=== PATIENT | male | born 1945 | race Caucasian/White ===

== ENCOUNTER 2016-06-29 13:46 | Inpatient (IN) | payer MEDICARE ==
[~2016-06-29] VITALS: Ht 175.3 cm; Wt 69.4 kg
[2016-06-29 15:27] LABS: BASOPHILS % (AUTO) 0 % (0-2); EOSINOPHILS % (AUTO) 0 % (0-4); LYMPHOCYTES # (AUTO) 1.7 X10^3; MEAN CORPUSCULAR HEMOGLOBIN 27.8 PG (26.0-34.0); MEAN CORPUSCULAR HGB CONC 32.6 g/dL (31.0-37.0); MEAN CORPUSCULAR VOLUME 86 FL (80-100); MEAN PLATELET VOLUME 10.5 FL (6.0-9.5); MONOCYTES # (AUTO) 1.4 X10^3; MONOCYTES % (AUTO) 8 % (3-11); NEUTROPHILS # (AUTO) 14.2 X10^3; NEUTROPHILS % (AUTO) 82 % (51-67); PLATELET COUNT 154 10^3uL (150-450); WHITE BLOOD COUNT 17.35 10^3uL (4.0-11.0)
[2016-06-29] MEDS ORDERED: ALBUTEROL/IPRATROPIUM 3MG-0.5MG/3ML (DUONEB) NEB VIAL INH ONE (15:40)
[2016-06-29] MEDS ORDERED: methylPREDNISolone 125 MG (Solu-MEDROL) VIAL IV ONE (15:40)
[2016-06-29 16:05] LABS: ALBUMIN 3.6 g/dL (3.4-5.0); ALKALINE PHOSPHATASE 627 U/L (38-126); BUN/CREATININE RATIO 23 (10-20); CALCULATED IONIZED CALCIUM 4.1 mg/dL (3.8-4.6); TOTAL PROTEIN 7.1 g/dL (6.4-8.5)
[2016-06-29 18:16] LABS: CLARITY,URINE Clear; COLOR,URINE Amber; GLUCOSE, URINE (UA) Negative (Negative); LEUKOCYTE ESTERASE, URINE Negative (Negative)
[2016-06-29 18:19] LABS: BILIRUBIN,URINE 1+ (Negative)
[2016-06-29] MEDS ORDERED: cefTRIAXone SODIUM 1,000 MG in SODIUM CHLORIDE 50 ML IV ONE (18:25)
[2016-06-29] MEDS ORDERED: ONDANSETRON 2 MG/ML (Z0FRAN) 2 ML VIAL IV PRN (18:35)
[2016-06-29] MEDS ORDERED: ACETAMINOPHEN 325 MG TAB (TYLENOL) PO PRN (18:35)
--- NOTE | 2016-06-29 18:46 | NUR ---
Pt. arrives to 310 from ED via cart accomapnied by MANAGER FINE [employer] and family. Pt. ambulates to weigh chair with assist. See admission assessment.
[2016-06-29 18:56] LABS: URINE CENTRIFUGED VOLUME 12 mL
[2016-06-29 18:58] LABS: RBC,URINE 0-2 /HPF
[2016-06-29] MEDS ORDERED: SODIUM CHLORIDE 250 ML ONE (19:06)
[2016-06-29] MEDS ORDERED: AZITHROMYCIN 500 MG (ZITHROMAX) VIAL IV ONE (19:06)
[2016-06-29 19:08] VITALS: BP 115/65
[2016-06-29] MEDS: AZITHROMYCIN VIAL 500 MG in SODIUM CHLORIDE 250 ML IV SCH (19:11)
[2016-06-29] MEDS ORDERED: morphine INJ 2 MG/ML 1 ML SYRINGE IV PRN (19:15)
[2016-06-29 19:37] LABS: AMYLASE* 46 U/L (25-115); LIPASE* 45 U/L (23-300)
[2016-06-29] MEDS: ALBUTEROL/IPRATROPIUM 3MG-0.5MG/3ML (DUONEB) NEB VIAL INH PRN (20:14)
[2016-06-29 20:37] VITALS: BP 115/65
--- NOTE | 2016-06-29 21:00 | NUR ---
Food brought up (cake, yogurt, pudding, jello) and patient eats all without difficulties. No needs at this time.
[2016-06-30] VITALS (8 sets, daily range): BP systolic 84–116; BP diastolic 40–63
[2016-06-30 06:05] LABS: MEAN CORPUSCULAR HEMOGLOBIN 27.6 PG (26.0-34.0); MEAN CORPUSCULAR HGB CONC 32.1 g/dL (31.0-37.0); MEAN CORPUSCULAR VOLUME 86 FL (80-100); PLATELET COUNT 131 10^3uL (150-450); WHITE BLOOD COUNT 12.34 10^3uL (4.0-11.0)
[2016-06-30 06:10] LABS: BAND NEUTROPHILS % 1 % (0-6); SEGMENTED NEUTROPHILS % 92 % (51-67)
[2016-06-30 06:11] LABS: EOSINOPHILS % 0 % (0-4); LYMPHOCYTES # 0.6 #; MONOCYTES # 0.2 #; MONOCYTES % 2 % (3-11); RBC MORPH NORMAL (NORMAL); TOTAL CELLS COUNTED 100
--- NOTE | 2016-06-30 06:24 | NUR ---
Patient's telemetry shows elevated T wave and couplets. Dr. Lazo notified, EKG to be done. Will continue to monitor.
--- NOTE | 2016-06-30 06:27 | NUR ---
Patient rests in bed throughout night without needs. Reports pain better after administration of morphine. IV running without difficulties. No needs at this time.
[2016-06-30 06:57] LABS: ALBUMIN 3.2 g/dL (3.4-5.0); TOTAL PROTEIN 6.4 g/dL (6.4-8.5)
[2016-06-30] MEDS ORDERED: NS FLUSH 3 ML PRN IV (08:25)
[2016-06-30] MEDS ORDERED: NS FLUSH 10 ML PRN IV (08:25)
--- NOTE | 2016-06-30 08:30 | NUR ---
Pt sitting up in chair eating breakfast. at bedside. States he feels better than when he came in, but not great. Unable to pinpoint what is wrong. States "every time I take a bite of anything, it's like I get the hiccups!". Skin warm, dry, intact. Resprs nonlabored, even on RA. Denies needs.
[2016-06-30] MEDS: NS FLUSH 3 ML DAILY IV SCH (08:43)
--- NOTE | 2016-06-30 12:20 | NUR ---
MED REC COMPLETED-current med list obtained from [facility] application, retail pharmacy, and patient/spouse interview.
[2016-06-30] MEDS: ASPIRIN 325 MG TAB PO SCH (12:38)
[2016-06-30] MEDS: HYDROcodone/APAP 7.5 MG/325 MG (NORCO) TABLET PO PRN ×3 (12:40→18:42)
--- NOTE | 2016-06-30 15:26 | NUR ---
Resting with eyes closed. Resp regular. Spouse at bedside.
--- NOTE | 2016-06-30 16:21 | NUR ---
Amb around to nurses station with 1 assist. Gait steady. griffin sullivan.
[2016-06-30] MEDS ORDERED: cefTRIAXone SODIUM 1,000 MG in SODIUM CHLORIDE 50 ML IV SCH (17:00)
[2016-06-30] MEDS: AZITHROMYCIN VIAL 500 MG in SODIUM CHLORIDE 250 ML IV SCH (17:49)
--- NOTE | 2016-06-30 18:36 | NUR ---
States would like a breathing tx. Resp notified.
[2016-06-30] MEDS: ALBUTEROL/IPRATROPIUM 3MG-0.5MG/3ML (DUONEB) NEB VIAL INH PRN (18:45)
--- NOTE | 2016-06-30 19:30 | NUR ---
Pt. resting in bed with yellow gown over street clothes; IV antibiotic infusing without difficulty. Resp are even and unlabored on room air; denies nausea; current pain level at "4". Pt. reports IV site uncomfortable; site inspected and is without heat/redness/edema. Rate adjusted on antibiotic; will continue to monitor. Pt. and in quiet moods R/T: tests/new findings/future plans. Much encouragement and reassurance given to both. Pt. is pleasant and cooperative with care; call light and H2O within reach. Cot/linens in room provided for .
[2016-06-30 20:02] LABS: HEPATITIS A ANTIBODY IGM Negative; HEPATITIS B CORE ABY IGM Negative; HEPATITIS B SURFACE ANTIGEN C Negative
[2016-06-30] MEDS ORDERED: clonazePAM 0.5 MG (KlonoPIN) TAB PO SCH (21:00)
[2016-07-01 00:02] VITALS: BP 99/51
--- NOTE | 2016-07-01 01:10 | NUR ---
Pt. resting quietly with CPAP applied; 2L of O2 bleed-in; IVF infusing at 100 cc/hr; pt. appears to be in no distress. Call light and H2O within reach. at bedside sleeping on cot.
[2016-07-01 04:00] VITALS: BP 101/52
--- NOTE | 2016-07-01 05:30 | NUR ---
Telemetry has reflected sinus rhythm with PAC's and bundle branch block.
--- NOTE | 2016-07-01 06:37 | NUR ---
Pt. rested in long intervals last night; wore CPAP with 2L of O2 bleed-in; called for assist PRN with ambulation. Call light and H2O within reach. Pt. is very pleasant and cooperative. slept at bedside on cot.
[2016-07-01 07:33] VITALS: BP 128/65
[2016-07-01] MEDS: NS FLUSH 3 ML DAILY IV SCH (09:00)
[2016-07-01] MEDS: ASPIRIN 325 MG TAB PO SCH (10:06)
[2016-07-01] MEDS: HYDROcodone/APAP 7.5 MG/325 MG (NORCO) TABLET PO PRN (10:09)
--- NOTE | 2016-07-01 10:10 | NUR ---
[place] 7.5 mg given for c/o back pain - 11/30, abd pain 07/31. Verbalizes understanding of dismissal instructions. Dressed and ready for discharge.
--- NOTE | 2016-07-01 10:35 | NUR ---
Dismissed per w/c to home with . Telemetry and SL d'cd. Alert and oriented. Resp. labored on exertion - unlabored at rest. Skin w/d. Minimal verbal responses - short with care givers at times. Abd distended - active BS, c/o abd pain 07/31, back pain 11/30.
[2016-07-03 10:06] LABS: CMV IGM ANTIBODY Negative (Negative)
== END 2016-07-01 10:35 | disposition home or self-care (01) | DRG 191 ==
LOC: ED 13:48 → MED/SURG 18:03
PROVIDERS: ADMIT Family Medicine; ATTEND Family Medicine
DX: J44.1 Chronic obstructive pulmonary disease with (acute) exacerbation (principal); C78.7 Secondary malignant neoplasm of liver and intrahepatic bile duct; R09.02 Hypoxemia; E78.5 Hyperlipidemia, unspecified; F41.9 Anxiety disorder, unspecified; R10.9 Unspecified abdominal pain; R79.89 Other specified abnormal findings of blood chemistry; I45.10 Unspecified right bundle-branch block; R07.9 Chest pain, unspecified; F17.210 Nicotine dependence, cigarettes, uncomplicated
CPT/HCPCS: 36415; 71010; 71250; 74178; 80053; 80074; 81003; 81015; 82140; 82150; 83605; 83690; 83880; 84132; 84484; 85025; 85610; 86140; 86308; 86645; 87040; 87486; 87581; 87633; 87798; 93005; 93010; 94640; 96361; 96374; 99283; 99284

== ENCOUNTER → 2016-07-04 | Outpatient (REF) | payer MEDICARE ==
[2016-07-04 11:01] LABS: BASOPHILS % (AUTO) 0 % (0-2); EOSINOPHILS % (AUTO) 0 % (0-4); LYMPHOCYTES # (AUTO) 1.3 X10^3; MEAN CORPUSCULAR HEMOGLOBIN 27.2 PG (26.0-34.0); MEAN CORPUSCULAR HGB CONC 31.8 g/dL (31.0-37.0); MEAN CORPUSCULAR VOLUME 85 FL (80-100); MEAN PLATELET VOLUME 10.9 FL (6.0-9.5); MONOCYTES # (AUTO) 1.5 X10^3; MONOCYTES % (AUTO) 9 % (3-11); NEUTROPHILS % (AUTO) 83 % (51-67); PLATELET COUNT 169 10^3uL (150-450); WHITE BLOOD COUNT 16.77 10^3uL (4.0-11.0)
== END ==
LOC: LAB 10:38
PROVIDERS: ATTEND Internal Medicine Hematology & Oncology
DX: K76.89 Other specified diseases of liver (principal)
CPT/HCPCS: 85025

== ENCOUNTER 2016-07-12 06:40 | Day surgery (SDC) | payer MEDICARE ==
[~2016-07-12] VITALS: Ht 175.3 cm; Wt 67.7 kg
[2016-07-12] VITALS (8 sets, daily range): BP systolic 86–145; BP diastolic 54–82
[~2016-07-12 06:40] MED LIST: LACTATED RINGERS 1,000 ML IV SCH; SODIUM CHLORIDE FLUSH 3 ML SYR IV PRN
[2016-07-12] MEDS ORDERED: LIDOCAINE 4% TOPICAL 4.5 ML SYR ONE (07:30)
[2016-07-12] MEDS ORDERED: SIMETHICONE 40 MG/0.6 ML (MYLICON DROPS) ORAL SYRINGE ONE (07:30)
[2016-07-12] MEDS ORDERED: MIDAZOLAM 2 MG/2 ML (VERSED) VIAL ONE (07:39)
[2016-07-12] MEDS ORDERED: PROPOFOL 20 ML IV ONE (07:39)
[2016-07-12] MEDS ORDERED: ALFENTANIL 500 MCG/ML (ALFENTA) 5 ML AMP IV ONE (07:39)
[2016-07-12] MEDS ORDERED: SCOPOLAMINE 1.5 MG (TRANSDERM-SCOP) PATCH TD ONE (07:45)
[2016-07-12] MEDS ORDERED: LIDOCAINE 2% BOLUS 100 MG/5 ML (XYLOCAINE) SYRINGE ONE (08:12)
[2016-07-12] MEDS ORDERED: ONDANSETRON 2 MG/ML (Z0FRAN) 2 ML VIAL ONE (08:18)
== END 2016-07-12 11:35 | disposition home or self-care (01) ==
LOC: ASC 06:40
PROVIDERS: ATTEND Surgery
DX: C78.7 Secondary malignant neoplasm of liver and intrahepatic bile duct (principal); C78.89 Secondary malignant neoplasm of other digestive organs; R53.83 Other fatigue; K29.70 Gastritis, unspecified, without bleeding; R13.19 Other dysphagia; Z01.818 Encounter for other preprocedural examination; R63.4 Abnormal weight loss; Z68.22 Body mass index [BMI] 22.0-22.9, adult; F17.210 Nicotine dependence, cigarettes, uncomplicated; R19.4 Change in bowel habit; J44.9 Chronic obstructive pulmonary disease, unspecified
CPT/HCPCS: 36415; 43239; 85610; 87077; 88305; 88312; 88341; 88342; 88360; A9270; J2250; J2405; J7120

== ENCOUNTER → 2016-07-13 | Outpatient (REF) | payer MEDICARE ==
[2016-07-13 11:58] LABS: MEAN CORPUSCULAR HEMOGLOBIN 26.4 PG (26.0-34.0); MEAN CORPUSCULAR HGB CONC 31.3 g/dL (31.0-37.0); MEAN PLATELET VOLUME 10.7 FL (6.0-9.5); WHITE BLOOD COUNT 12.9 10^3uL (4.0-11.0)
[2016-07-13 12:35] LABS: ANION GAP 15.3 MEQ/L (3-15); CALCULATED IONIZED CALCIUM 3.8 mg/dL (3.8-4.6); TOTAL PROTEIN 6.8 g/dL (6.4-8.5)
== END ==
LOC: LAB 11:41
PROVIDERS: ATTEND Internal Medicine Hematology & Oncology
DX: K76.89 Other specified diseases of liver (principal); E86.0 Dehydration; R18.0 Malignant ascites; R13.10 Dysphagia, unspecified
CPT/HCPCS: 80053; 85027

== ENCOUNTER → 2016-07-13 | Outpatient (CLI) | payer MEDICARE | LOC: RAD 13:44 | PROVIDERS: ATTEND Internal Medicine | DX: E86.0 Dehydration (principal); R18.8 Other ascites; K76.89 Other specified diseases of liver | CPT/HCPCS: 76705 ==

== ENCOUNTER 2016-07-14 17:25 | Emergency (ER) | payer MEDICARE ==
[~2016-07-14] VITALS: Ht 175.3 cm; Wt 65.5 kg
[2016-07-14 17:59] LABS: ANION GAP 18.9 MEQ/L (3-15)
[2016-07-14 18:00] LABS: ALBUMIN 3.1 g/dL (3.4-5.0); CALCULATED IONIZED CALCIUM 3.9 mg/dL (3.8-4.6); TOTAL PROTEIN 6.9 g/dL (6.4-8.5)
[2016-07-14] MEDS ORDERED: PIPERACILLIN/TAZOBACTAM 3.375 GM in SODIUM CHLORIDE 50 ML IV ONE (18:00)
[2016-07-14] MEDS ORDERED: methylPREDNISolone 125 MG (Solu-MEDROL) VIAL IV ONE (18:00)
[2016-07-14] MEDS ORDERED: ALBUTEROL/IPRATROPIUM 3MG-0.5MG/3ML (DUONEB) NEB VIAL INH ONE (18:00)
[2016-07-14 18:03] LABS: MEAN CORPUSCULAR HGB CONC 32.1 g/dL (31.0-37.0); MEAN CORPUSCULAR VOLUME 83 FL (80-100); MEAN PLATELET VOLUME 10.7 FL (6.0-9.5); PLATELET COUNT 467 10^3uL (150-450); WHITE BLOOD COUNT 16.07 10^3uL (4.0-11.0)
[2016-07-14 18:05] LABS: MEAN CORPUSCULAR HEMOGLOBIN 26.7 PG (26.0-34.0)
[2016-07-14 18:18] LABS: BAND NEUTROPHILS % 6 % (0-6); EOSINOPHILS % 0 % (0-4); LYMPHOCYTES # 2.9 #; MONOCYTES # 1.4 #; MONOCYTES % 9 % (3-11); RBC MORPH NORMAL (NORMAL); SEGMENTED NEUTROPHILS % 67 % (51-67); TOTAL CELLS COUNTED 100
[2016-07-14 19:43] LABS: CLARITY,URINE Cloudy; COLOR,URINE Brown; GLUCOSE, URINE (UA) Negative (Negative); LEUKOCYTE ESTERASE ,URINE Negative (Negative); PH,URINE 5.5 (5.0 - 8.0)
[2016-07-14 19:49] LABS: BILIRUBIN,URINE 3+ (Negative)
[2016-07-14] MEDS ORDERED: HYDROmorphone 1 MG/ML (DILAUDID) SYRINGE IV ONE (20:00)
[2016-07-14 20:17] LABS: RBC,URINE None Seen /HPF; URINE CENTRIFUGED VOLUME 12 mL
--- NOTE | 2016-07-14 20:20 | NUR ---
Report called to Mich Herron RN
[2016-07-14 23:25] VITALS: BP 112/76
== END 2016-07-14 20:40 | disposition short-term general hospital (02) ==
LOC: ED 17:26
DX: G92 Toxic encephalopathy (principal); A41.9 Sepsis, unspecified organism; C15.9 Malignant neoplasm of esophagus, unspecified; C78.7 Secondary malignant neoplasm of liver and intrahepatic bile duct; C78.89 Secondary malignant neoplasm of other digestive organs; F17.210 Nicotine dependence, cigarettes, uncomplicated
CPT/HCPCS: 36415; 70450; 71010; 80053; 81003; 81015; 82140; 82550; 82553; 83605; 84484; 85025; 85610; 85730; 87040; 93005; 94640; 99285; J1170; J2543; J2930; J7030; 93010; 96365; 96366; 96375

== ENCOUNTER → 2016-07-14 | Outpatient (CLI) | payer MEDICARE | LOC: RAD 10:39 | PROVIDERS: ATTEND Internal Medicine | DX: R06.02 Shortness of breath (principal); J43.9 Emphysema, unspecified | CPT/HCPCS: 71020 ==

== ENCOUNTER → 2016-07-14 | Outpatient (CLI) | payer MEDICARE | LOC: EMS 20:55 | PROVIDERS: ATTEND Family Medicine | DX: G93.40 Encephalopathy, unspecified (principal); A41.9 Sepsis, unspecified organism ==